=== PATIENT | female | born 1965 | race Two or more races ===

== ENCOUNTER 2024-05-20 08:39 | Outpatient (CLI) | payer OTHER | END 2024-05-20 08:51 | disposition home or self-care (01) | LOC: TOM 08:39 | PROVIDERS: ATTEND Surgery | DX: K57.30 Diverticulosis of large intestine without perforation or abscess without bleeding (principal); R10.9 Unspecified abdominal pain; Z12.11 Encounter for screening for malignant neoplasm of colon ==

== ENCOUNTER 2025-02-18 11:45 | Inpatient (IN) | payer OTHER ==
[~2025-02-18] VITALS: Ht 157.5 cm; Wt 76.2 kg
[2025-02-18] MEDS ORDERED: SYNTHROID88 MCG PO (13:20)
[2025-02-18] MEDS ORDERED: ZETIA10 MG PO (13:20)
[2025-02-18] MEDS ORDERED: TENORMIN25 MG PO (13:23)
[2025-02-26] MEDS ORDERED: LIDOCAINE HCL 1%/EPINEPHRINE 20ML VIAL IJ ONE ×2 (07:16→08:15)
[2025-02-26] MEDS ORDERED: BUPIVACAINE HCL/MPF 0.5% 30ML VIAL ONE (07:16)
[2025-02-26] MEDS ORDERED: CEFTRIAXONE SODIUM 2,000 MG VIAL ONE (07:16)
[2025-02-26] MEDS ORDERED: METRONIDAZOLE/SODIUM CHLORIDE 500 MG/100 ML PIGGYBACK IV ONE ×4 (07:17→17:41)
[2025-02-26] MEDS ORDERED: BUPIVACAINE HCL 30 ML VIAL IJ ONE (08:15)
[2025-02-26] MEDS ORDERED: CEFTRIAXONE SODIUM 2,000 MG VIAL IV ONE (08:15)
[2025-02-26] MEDS ORDERED: FAMOTIDINE/PF 20 MG/2 ML VIAL IV PUSH SCH (09:21)
[2025-02-26] MEDS ORDERED: TAMSULOSIN HCL 0.4 MG CAP PO SCH (09:22)
[2025-02-26] MEDS ORDERED: CIPROFLOXACIN IN 5 % DEXTROSE 400 MG/200 ML PIGGYBAG IV SCH (09:22)
[2025-02-26] MEDS ORDERED: METRONIDAZOLE/SODIUM CHLORIDE 500 MG/100 ML PIGGYBACK IV SCH (09:22)
[2025-02-26] MEDS ORDERED: LACTOBACILLUS ACIDOPHILUS 1 CAP CAP PO SCH (09:22)
[2025-02-26] MEDS ORDERED: RINGERS SOLUTION,LACTATED 1,000 ML IV SCH (09:30)
[2025-02-26] MEDS ORDERED: MORPHINE SULFATE 4 MG/ML CARTRIDGE IV PRN (09:30)
[2025-02-26] MEDS ORDERED: ONDANSETRON HCL 2 MG/ML VIAL IV PRN (09:30)
[2025-02-26] MEDS ORDERED: OxyCODONE HCL 5 MG TABLET (ROXICODONE) PO PRN (09:30)
[2025-02-26] MEDS ORDERED: MORPHINE SULFATE 4 MG/ML VIAL IV ONE ×3 (09:40→11:10)
[2025-02-26] MEDS ORDERED: FAMOTIDINE/PF 20 MG/2 ML VIAL ONE (10:21)
[2025-02-26] MEDS ORDERED: CIPROFLOXACIN IN 5 % DEXTROSE 400 MG/200 ML PIGGYBAG IV ONE (10:21)
[2025-02-26] MEDS ORDERED: ACETAMINOPHEN 500 MG GEL..CAP PO SCH (12:00)
[2025-02-26] MEDS ORDERED: HYOSCYAMINE SULFATE 0.125 MG TAB.SUBL SL SCH (13:00)
[2025-02-26] MEDS ORDERED: NALOXONE HCL 0.4 MG/ML AMPUL IV STA (13:21)
[2025-02-26] MEDS ORDERED: ENALAPRILAT DIHYDRATE 1.25 MG/ML VIAL IV PRN (14:00)
[2025-02-26] MEDS ORDERED: KETOROLAC TROMETHAMINE 30 MG VIAL IM STA (14:46)
[2025-02-26] MEDS ORDERED: KETOROLAC TROMETHAMINE 30 MG VIAL ONE (14:57)
[2025-02-26] MEDS ORDERED: KETOROLAC TROMETHAMINE 30 MG VIAL IM ONE (14:58)
[2025-02-26 15:11] LABS: ABG PH 7.319 (7.35-7.45); ABG PO2 72.1 mmHg (80-100); BASE EXCESS -2.4 mmol/l; BICARBONATE 24.1 mmol/l (23-25); SaO2 92.6 %; Tco2 25.6 mmol/l
[2025-02-26 15:13] LABS: allen test SATISFACTORY; mode ROOM AIR; o2 21 %; puncture site RADIAL RIGHT
[2025-02-26] MEDS ORDERED: GABAPENTIN 300 MG CAPSULE PO SCH (17:00)
[2025-02-26] MEDS ORDERED: HYOSCYAMINE SULFATE 0.125 MG TAB.SUBL ONE (17:40)
[2025-02-26] MEDS ORDERED: GABAPENTIN 300 MG CAPSULE PO ONE (17:40)
[2025-02-26] MEDS ORDERED: ACETAMINOPHEN 500 MG GEL..CAP PO ONE (17:56)
[2025-02-26 18:20] VITALS: BP 148/76; O2SAT 97
[2025-02-26 21:06] VITALS: O2SAT 92
[2025-02-26 23:38] VITALS: O2SAT 88
[2025-02-27] VITALS (10 sets, daily range): BP systolic 104–129; BP diastolic 59–75; O2SAT 90–99
[2025-02-27] MEDS ORDERED: PATIENTS OWN MEDICATION (MEDICAMENTO EN PISO) PO SCH (06:00)
[2025-02-27 08:39] LABS: BASO % 0.3 % (0.1-1.2); EOS # 0.07 (0.04-0.54); EOS % 0.6 % (0.7-7.0); HEMATOCRIT 32.3 % (34.1-44.9); HEMOGLOBIN 10.2 g/dL (11.2-15.7); LYMPH # 1.18 (1.18-3.74); LYMPH % 10.6 % (19.3-53.1); MEAN CORPUSCULAR HEMOGLOBIN 24.9 pg (25.6-32.2); MONO # 1.05 (0.24-0.82); MONO % 9.4 % (4.7-12.5); NEUT # 8.79 (1.56-6.13); NEUT % 78.7 % (34.0-71.1); PLATELET COUNT 215 K/uL (163-369); RED CELL DISTRIBUTION WIDTH 15.8 % (11.6-14.4)
[2025-02-27 09:10] LABS: ALBUMIN 3.1 gm/dL (3.4-5.0); CALCIUM 8.5 mg/dL (8.5-10.1); CREATININE SERUM 0.74 mg/dL (0.55-1.02); GFR 80.89; MAGNESIUM 1.8 mg/dL (1.8-2.4); PHOSPHOROUS 2.7 mg/dL (2.5-4.9); POTASSIUM 4.23 mEq/L (3.5-5.1)
[2025-02-27 11:26] LABS: ABG PH 7.423 (7.35-7.45); ABG pCO2 40.1 mmHg (35-45); BASE EXCESS 1.2 mmol/l; BICARBONATE 25.6 mmol/l (23-25); SaO2 95.6 %; Tco2 26.9 mmol/l
[2025-02-27 11:29] LABS: allen test SATISFACTORY; o2 21 %; puncture site RADIAL RIGHT
[2025-02-27] MEDS ORDERED: ENOXAPARIN SODIUM 40 MG/0.4 ML SYRINGE SUBCUTANEO SCH (17:00)
[2025-02-27] MEDS ORDERED: ROSUVASTATIN CALCIUM 10 MG TABLET PO SCH (17:00)
[2025-02-28] VITALS: BP 112/64; O2SAT 97
[2025-02-28 08:55] VITALS: BP 102/57; O2SAT 95
[2025-02-28] MEDS ORDERED: ENOXAPARIN SODIUM 40 MG/0.4 ML SYRINGE SUBCUTANEO SCH (09:00)
[2025-02-28 09:16] LABS: BASO % 0.4 % (0.1-1.2); EOS # 0.22 (0.04-0.54); EOS % 2.2 % (0.7-7.0); HEMATOCRIT 34.8 % (34.1-44.9); HEMOGLOBIN 10.9 g/dL (11.2-15.7); LYMPH # 0.92 (1.18-3.74); MEAN CORPUSCULAR HEMOGLOBIN 25.6 pg (25.6-32.2); MONO # 0.79 (0.24-0.82); MONO % 7.8 % (4.7-12.5); NEUT # 8.16 (1.56-6.13); NEUT % 80.2 % (34.0-71.1); PLATELET COUNT 251 K/uL (163-369); RED BLOOD COUNT 4.25 M/uL (3.93-5.22); RED CELL DISTRIBUTION WIDTH 16.1 % (11.6-14.4)
[2025-02-28 09:18] VITALS: O2SAT 97
[2025-02-28 09:50] LABS: CALCIUM 8.5 mg/dL (8.5-10.1); CREATININE SERUM 0.78 mg/dL (0.55-1.02); GFR 76.12; PHOSPHOROUS 2.3 mg/dL (2.5-4.9); POTASSIUM 3.88 mEq/L (3.5-5.1)
[2025-02-28] MEDS ORDERED: INTESTINEX680 M1 PO (10:27)
[2025-02-28] MEDS ORDERED: HYOSCYAMINE0.125 M1 SL (10:28)
[2025-02-28 12:59] VITALS: O2SAT 98
== END 2025-02-28 16:33 | disposition home or self-care (01) | DRG 331 ==
LOC: O/R 02-26 05:00 → SURH 02-26 07:00
PROVIDERS: Internal Medicine; Internal Medicine Geriatric Medicine; ADMIT Surgery; ATTEND Surgery
PROC: 0DBP4ZZ Excision of Rectum, Percutaneous Endoscopic Approach (ICD-10-PCS; 2025-02-26)
PROC: 0DJ08ZZ Inspection of Upper Intestinal Tract, Via Natural or Artificial Opening Endoscopic (ICD-10-PCS; 2025-02-26)
PROC: 0DTF4ZZ Resection of Right Large Intestine, Percutaneous Endoscopic Approach (ICD-10-PCS; 2025-02-26)
PROC: 4A12X4Z Monitoring of Cardiac Electrical Activity, External Approach (ICD-10-PCS; 2025-02-26)
PROC: 0DTN4ZZ Resection of Sigmoid Colon, Percutaneous Endoscopic Approach (ICD-10-PCS; principal; 2025-02-26 07:00)
DX: K57.30 Diverticulosis of large intestine without perforation or abscess without bleeding (principal); K66.0 Peritoneal adhesions (postprocedural) (postinfection); E03.8 Other specified hypothyroidism; I10 Essential (primary) hypertension